=== PATIENT | female | born 1995 | race Caucasian/White ===

== ENCOUNTER 2024-03-14 18:17 | Outpatient (CLI) | payer BC, SELFPAY ==
[2024-03-14] VITALS (23 sets, daily range): BP systolic 118–121; BP diastolic 71–77; PULSE 62–79; O2SAT 98–100; BMI 29.9
--- NOTE | 2024-03-14 18:17 | PC.NURSE ---
Pt arrives to unit from the office with elevated blood pressures.
[2024-03-14 19:08] LABS: Basophils Percent Auto 0.2 % (0.2-1.2); Eosinophils Absolute Auto 0.1 K/mm3 (0-0.3); Eosinophils Percent Auto 1.3 % (0-4.4); Hematocrit 34.2 % (37.0-47.0); Hemoglobin 11.8 g/dL (12.0-15.0); Immature Granulocyte Absolute 0.03 K/mm3 (0.00-0.031); Immature Granulocyte Percent A 0.3 % (0-0.5); Lymphocytes Absolute Auto 2.03 K/mm3 (0.9-3.2); Lymphocytes Percent Auto 20.2 % (18.3-44.2); Mean Corpuscular HGB Conc 34.5 g/dl (32-36); Mean Corpuscular Hemoglobin 30.6 pg (26-34); Mean Corpuscular Volume 88.8 fl (80-100); Monocytes Absolute Auto 0.9 K/mm3 (0.1-0.6); Monocytes Percent Auto 8.6 % (2.6-8.5); Neutrophils Percent Auto 69.4 % (45.5-73.1); Platelet Count Result 291 k/mm3 (150-375); Red Blood Count 3.85 M/mm3 (4.2-5.4); Red Cell Distribution Width 13.3 % (11.5-14.5); White Blood Count 10.1 K/mm3 (4.5-10.0)
[2024-03-14 19:17] LABS: Appearance Urine Cloudy (Clear); Bacteria Urine 3+ /hpf; Bilirubin Urine Negative (Negative); Blood Urine 2+ (Negative); Color Urine Yellow (Yellow); Glucose Urine UA Negative (Negative); Ketones Urine Negative (Negative); Leukocyte Esterase Ur 3+ LEU/UL (Negative); Nitrate Urine Negative (Negative); Non Pathogenic Casts 0-2; Protein Urine Negative (Negative); RBC Urine 0-2 /hpf (0-2); Specific Grav Ur 1.012 (1.001-1.035); Squamous Epithelial Cell Urine Moderate /hpf (Few); Urobilinogen Urine 0.2 mg/dL (<2.0); WBC Urine 51-100 /hpf (0-3); pH Urine 6.5 (5.0-9.0)
[2024-03-14 19:18] LABS: Alanine Aminotransferase 18 U/L (6-35); Albumin Level 3.5 g/dL (3.5-5.1); Alkaline Phosphatase 148 U/L (38-126); Anion Gap 11 mmol/L (4-12); Aspartate Amino Transferase 25 U/L (14-36); Bilirubin,Total 0.2 mg/dL (0.2-1.3); Blood Urea Nitrogen 7 mg/dL (7-17); Calcium 8.7 mg/dL (8.4-10.2); Carbon Dioxide 19 mmol/L (22-30); Chloride 105 mmol/L (98-107); Estimated Glomerular Filt Rate > 60; Glucose 91 mg/dL (65-110); Potassium 3.8 mmol/L (3.4-5.0); Sodium 135 mmol/L (137-145); Uric Acid 5.5 mg/dL (2.5-7.5)
[2024-03-14 19:19] LABS: Add Urine Microscopic? YES
[2024-03-14 19:37] LABS: Creatinine Urine 67.1 mg/dL; Total Protein Urine Random 7 mg/dL
--- NOTE | 2024-03-14 20:10 | PC.NURSE ---
Called Dr. Newman, update on pt, labs, tracing, contractions, and blood pressure. Orders received to discharge pt with hypertension in precautions, instructions to keep next scheduled appointment, and when to return to the unit.
--- NOTE | 2024-03-14 20:29 | PC.NURSE ---
Pt discharged with hypertension in precautions, Dr. Newman' office will call tomorrow to schedule version, instructions to keep next scheduled appointment, and when to return to the unit.
== END 2024-03-14 20:29 | disposition home or self-care (01) ==
LOC: ANHOBOP 18:21 → ANHOBPP 18:21
PROVIDERS: Student in an Organized Health Care Education/Training Program; Visit Provider Obstetrics & Gynecology
DX: O13.9 Gestational [pregnancy-induced] hypertension without significant proteinuria, unspecified trimester (principal); Z3A.00 Weeks of gestation of pregnancy not specified
CPT/HCPCS: 36415; 59025; 80053; 81001; 82570; 84156; 84550; 85025; 87086; 99199

== ENCOUNTER 2024-03-19 13:19 | Outpatient (CLI) | payer BC, SELFPAY ==
[2024-03-19] VITALS (12 sets, daily range): BP systolic 118–133; BP diastolic 65–85; PULSE 71–90; O2SAT 99–100
[2024-03-19] MEDS: TERBUTALINE SULFATE 1 MG/ML VIAL 0.25 MG SUB-Q (14:20)
--- NOTE | 2024-03-19 14:41 | PM.OBTRLD ---
OB - Triage/Final Diagnosis Visit Information Comments/Additional reasons for admission: I have assessed the risk for this patient, Kelly Holloway, and determined that she would benefit from observation care. Evaluation Vital signs: Vital Signs - 24 hr 03/19/24 14:00 03/19/24 14:15 03/19/24 14:32 Pulse Rate 77 71 Blood Pressure 126/85 118/69 Pulse Oximetry 100 03/19/24 14:37 Pulse Rate Blood Pressure Pulse Oximetry 99 Final Diagnosis (1) Breech malpresentation successfully converted to cephalic presentation: Qualifiers: Fetus number: single or unspecified fetus Qualified Code(s): O32.1XX0 - Maternal care for breech presentation, not applicable or unspecified Code(s): O32.1XX0 - Maternal care for breech presentation, not applicable or unspecified Status: Acute Plan: - successful ECV; baby now cephalic - will monitor FHT's for minimum of 30 minutes; if category 1, will discharge home with precautions - pt does not desire IOL unless 41wks - will see pt in office on 03/21/24
--- NOTE | 2024-03-19 15:15 | PC.NURSE ---
NST complete. Labor precautions given to the pt. Pt to see Dr. Newman in the office on tue. No further questions per family and spouse.
== END 2024-03-19 15:18 | disposition home or self-care (01) ==
LOC: ANHOBOP 13:24 → ANHOBPP 13:28
PROVIDERS: Visit Provider Obstetrics & Gynecology
DX: O32.1XX0 Maternal care for breech presentation, not applicable or unspecified (principal); Z3A.00 Weeks of gestation of pregnancy not specified
CPT/HCPCS: 59412; 99199; J3105

== ENCOUNTER 2024-03-28 18:46 | Inpatient (IN) | payer BC, SELFPAY ==
[2024-03-28] VITALS (15 sets, daily range): BP systolic 118–137; BP diastolic 72–96; PULSE 47–68; TEMP 36.6–36.8
--- NOTE | 2024-03-28 19:23 | LDADM ---
This patient, Kelly Holloway, was admitted to Labor/Delivery/Recovery 104 on 03/28/24 at 18:46. Plans for labor, pain management and were discussed with patient. Patient/family oriented to hospital policies and general routines including ID bracelet, bed and alarms, visiting hours, pain management, procedures, bathroom and other care routines, personal items, smoking policy, room service/diet and guest tray routines, security routines, and visiting hours. Patient/Family are encouraged to report perceived risks to care and to ask questions if they do not understand what they are told or what they should do. See OBIX for further documentation.
--- NOTE | 2024-03-28 19:34 | PM.IMHP ---
H&P: HPI History of Present Illness Date/Time: 03/28/24 19:34 Chief Complaint: newly diagnosed gestational hypertension Narrative: Kelly is a 28yo @ 40.0wks who presents to L&D for IOL due to newly diagnosed GHTN. She had PIH w/u 2 wks ago when her first mild range BP was noted; P/C was negative. She once again had elevated BPs in office today and is 40wks. She has a favorable cervix and was scheduled for IOL this weekend. She reports good movement. Irregular contractions. No VB or LOF. She denies CERVANTES, vision changes, CP, SOB. Her is complicated by: - Newly diagnosed GHTN; repeat PIH labs pending - Breech; converted to cephalic @ 38.5wks--- still cephalic - Cmv/parvo non-immune - h/o headaches Review of Systems Constitutional: Constitutional: Denies chills, Denies fever(s) and Denies headache(s) Eyes: Eyes: Denies change in vision ENT: Denies headache(s) Cardiovascular: Cardiovascular: Denies chest pain and Denies dyspnea Respiratory: Respiratory: Denies dyspnea Genitourinary: Genitourinary: Denies abnormal vaginal bleeding and Denies vaginal discharge Neurologic: Denies headache(s) Psychiatric: Psychiatric: Denies anxiety and Denies depression [facility] Surgical History Surgical History H/O knee surgery left History of appendectomy Family History Family History Grandparent Diabetes mellitus Other Lung cancer Social History Social History Smoking status: Never smoker Alcohol intake: never Substance use: never Do You Feel Safe in your Home?: Yes Lack of Transportation: No Lack of Food: Never True Current Housing: I Have Housing Concerned About Future Housing: No Difficulty Paying Gas/Electric Bills: No Difficulty Paying for Meds: No Currently Unemployed: No Education: Bachelor's Degree Difficulty w/ Childcare or Family Care: No Living arrangements: with family Additional living arrangements comments: Occupation/Education: occupation Gender identity (if verbalized by the patient): Female Sexual Orientation (if Verbalized by the Patient): Straight or Heterosexual Spiritual care concerns: No Meds Home Medications and Allergies Home Medications Medication Instructions Recorded Confirmed Type riboflavin (vitamin B2) 400 mg 400 mg PO DAILY #90 tabs 08/18/23 03/28/24 Rx tablet vits no.126-ferrous fum 1 tablet PO DAILY 10/26/23 03/28/24 History 28 mg iron-folic acid 800 mcg tablet (Classic ) valacyclovir 1 gram tablet 2,000 mg PO BID 1 day #4 tabs 10/28/23 03/28/24 Rx (Valtrex) magnesium oxide 400 mg PO DAILY #90 caps 12/22/23 03/28/24 Rx Allergies Allergy/AdvReac Type Severity Reaction Status Date / Time No Known Allergies Allergy Verified 03/28/24 15:22 Exam Const: General: cooperative, healthy appearing, comfortable and no acute distress Nutritional Appearance: obese Orientation/consciousness: patient oriented x3 Resp: Effort & Inspection: normal respiratory effort Cardio: Rate: regular rate GI: GI Palp: No abdominal tenderness : Other: FHT's: 130's/ mod fidel/ + accels/ no decels - cat 1 TOCO: irregular ctxs Cervix: 4.5/50/-3 Membranes: intact Presentation: cephalic Skin: General skin exam: normal color Neuro: General: patient oriented x3 Extrem: General: normal to inspection Psych: Appearance: grossly normal Affect: normal affect Attitude: cooperative Assessment and Plan Assessment and plan (1) Gestational hypertension affecting first : Code(s): O13.9 - Gestational [-induced] hypertension without significant proteinuria, unspecified trimester Status: Acute Plan - newly diagnosed GHTN @ 40wks; PIH w/u pending - favorable cervix on exam - Will start low dose pitocin
[2024-03-28 19:55] LABS: Basophils Percent Auto 0.2 % (0.2-1.2); Eosinophils Absolute Auto 0.1 K/mm3 (0-0.3); Eosinophils Percent Auto 1.2 % (0-4.4); Hematocrit 36.1 % (37.0-47.0); Hemoglobin 12.2 g/dL (12.0-15.0); Immature Granulocyte Absolute 0.03 K/mm3 (0.00-0.031); Immature Granulocyte Percent A 0.3 % (0-0.5); Lymphocytes Absolute Auto 2.21 K/mm3 (0.9-3.2); Lymphocytes Percent Auto 21.9 % (18.3-44.2); Mean Corpuscular HGB Conc 33.8 g/dl (32-36); Mean Corpuscular Hemoglobin 30.3 pg (26-34); Mean Corpuscular Volume 89.6 fl (80-100); Mean Platelet Volume 11.7 fl (7.4-10.4); Monocytes Absolute Auto 0.8 K/mm3 (0.1-0.6); Monocytes Percent Auto 8.3 % (2.6-8.5); Neutrophils Absolute Auto 6.9 K/mm3 (1.3-6.7); Neutrophils Percent Auto 68.1 % (45.5-73.1); Platelet Count Result 299 k/mm3 (150-375); Red Blood Count 4.03 M/mm3 (4.2-5.4); Red Cell Distribution Width 13.2 % (11.5-14.5); White Blood Count 10.1 K/mm3 (4.5-10.0)
[2024-03-28 20:07] LABS: Alanine Aminotransferase 16 U/L (6-35); Albumin Level 3.8 g/dL (3.5-5.1); Alkaline Phosphatase 171 U/L (38-126); Anion Gap 10 mmol/L (4-12); Aspartate Amino Transferase 25 U/L (14-36); Bilirubin,Total 0.3 mg/dL (0.2-1.3); Blood Urea Nitrogen 9 mg/dL (7-17); Calcium 9.2 mg/dL (8.4-10.2); Carbon Dioxide 21 mmol/L (22-30); Chloride 104 mmol/L (98-107); Estimated Glomerular Filt Rate > 60; Glucose 77 mg/dL (65-110); Sodium 135 mmol/L (137-145)
[2024-03-28 20:08] LABS: Rapid Plasma Reagin Non-Reactive (NonReactive)
[2024-03-28 20:09] LABS: Uric Acid 6.4 mg/dL (2.5-7.5)
[2024-03-28 20:47] LABS: HIV 1/2 Ab P24 Ag Result Negative (Negative)
[2024-03-28 21:03] LABS: Creatinine Urine 22.8 mg/dL; Total Protein Urine Random 12 mg/dL; Ur Ttl Prot Creatinine Ratio 0.53 mg/mg (0-0.20)
[2024-03-28] MEDS: LACTATED RINGERS 1,000 ML 125 ML IV CONT (21:17)
[2024-03-28] MEDS: OXYTOCIN 30 UNITS/NS 500 ML 30 UNITS/500 ML BAG IV CONT (22:19)
[2024-03-29] VITALS (75 sets, daily range): BP systolic 78–140; BP diastolic 48–108; PULSE 44–132; RESP 16–18; TEMP 36.6–37.1; O2SAT 76–100; BMI 30.7
[2024-03-29] MEDS: LACTATED RINGERS 1,000 ML 125 ML IV CONT ×2 (02:40→07:49)
--- NOTE | 2024-03-29 07:17 | PM.OBPNLAB ---
Pain Control Date/time seen: 03/29/24 07:17 Pain control: tolerating well Comments: would like epidural soon though Pelvic Exam Dilation (cm): 6 Effacement (%): 80 station: -2 Amniotic membrane status: Ruptured (AROM, clear 0715) Contractions Monitor mode: External Contraction frequency: 2 Contraction pattern: Regular Status status: Category l Assessment and Plan Pitocin rate (mU/min): 18 Assessment: active labor Plan: continuous present management Comments: anesthesia for epidural
[2024-03-29] MEDS: fentaNYL CITRATE INJ (*CRX) 100 MCG/2 ML VIAL 50 MCG IV PUSH (07:51)
--- NOTE | 2024-03-29 08:25 | WPDANESEPPF ---
Anes - Initial Pre Proc Eval Procedure: labor epidural Date/Time: 03/29/24 08:25 Surgeon: Cat Newman MD Pre Op Diagnosis: labor pain Pre Op Diagnosis: IOL Patient Data Age: 28 Gender: F Height: Weight: Last Vital Signs Temp 36.6 C 03/29/24 06:16 Pulse 58 L 03/29/24 08:25 Resp 16 03/29/24 06:16 BP 127/72 03/29/24 08:25 Pulse Ox 100 03/29/24 08:21 Allergies Allergy/AdvReac Type Severity Reaction Status Date / Time No Known Allergies Allergy Verified 03/28/24 15:22 Home Medications Medication Instructions Recorded Confirmed Type riboflavin (vitamin B2) 400 mg 400 mg PO DAILY #90 tabs 08/18/23 03/28/24 Rx tablet vits no.126-ferrous fum 1 tablet PO DAILY 10/26/23 03/28/24 History 28 mg iron-folic acid 800 mcg tablet (Classic ) valacyclovir 1 gram tablet 2,000 mg PO BID 1 day #4 tabs 10/28/23 03/28/24 Rx (Valtrex) magnesium oxide 400 mg PO DAILY #90 caps 12/22/23 03/28/24 Rx Laboratory Tests 03/28/24 03/28/24 19:09 20:14 WBC 10.1 H K/mm3 (4.5-10.0) RBC 4.03 L M/mm3 (4.2-5.4) Hgb 12.2 g/dL (12.0-15.0) Hct 36.1 L % (37.0-47.0) MCV 89.6 fl (80-100) MCH 30.3 pg (26-34) MCHC 33.8 g/dl (32-36) RDW 13.2 % (11.5-14.5) Plt Count 299 k/mm3 (150-375) MPV 11.7 H fl (7.4-10.4) Immature Gran % (Auto) 0.3 % (0-0.5) Neut % (Auto) 68.1 % (45.5-73.1) Lymph % (Auto) 21.9 % (18.3-44.2) Young % (Auto) 8.3 % (2.6-8.5) Eos % (Auto) 1.2 % (0-4.4) Baso % (Auto) 0.2 % (0.2-1.2) Lymph # (Auto) 2.21 K/mm3 (0.9-3.2) Young # (Auto) 0.8 H K/mm3 (0.1-0.6) Eos # (Auto) 0.1 K/mm3 (0-0.3) Baso # (Auto) 0.0 K/mm3 (0.0-0.1) Abs Immat Gran (auto) 0.03 K/mm3 (0.00-0.031) Absolute Neuts (auto) 6.9 H K/mm3 (1.3-6.7) Absolute Nucleated RBC 0.000 K/mm3 (0.0-0.012) Nucleated RBC % 0.0 % (0.0-0.2) Sodium 135 L mmol/L (137-145) Potassium 4.0 mmol/L (3.4-5.0) Chloride 104 mmol/L (98-107) Carbon Dioxide 21 L mmol/L (22-30) Anion Gap 10 mmol/L (4-12) BUN 9 mg/dL (7-17) Creatinine 0.60 L mg/dL (0.7-1.0) Estim Creat Clear Calc Not Reportable Estimated GFR > 60 (59 - ) Glucose 77 mg/dL (65-110) Uric Acid 6.4 mg/dL (2.5-7.5) Calcium 9.2 mg/dL (8.4-10.2) Total Bilirubin 0.3 mg/dL (0.2-1.3) AST 25 U/L (14-36) ALT 16 U/L (6-35) Alkaline Phosphatase 171 H U/L (38-126) Total Protein 7.0 g/dL (6.3-8.2) Albumin 3.8 g/dL (3.5-5.1) U Random Total Protein 12 mg/dL Urine Creatinine 22.8 mg/dL Protein/Creat Ratio 2 0.53 H mg/mg (0-0.20) RPR Non-reactive (NonReactive) HIV 1&2 Ab/P24 Ag 4thGn Negative (Negative) Blood Type A Positive Antibody Screen Negative Patient hx anesthesia problems: none Family hx anesthesia problems: none Results Review: All pre-operative results and documents have been reviewed as part of the pre-operative evaluation. [facility] Surgical History Surgical History H/O knee surgery left History of appendectomy Family History Family History Grandparent Diabetes mellitus Other Lung cancer Social History Social History Smoking status: Never smoker Alcohol intake: never Substance use: never Do You Feel Safe in your Home?: Yes Lack of Transportation: No Lack of Food: Never True Current Housing: I Have Housing Concerned About Future Housing: No Difficulty Paying Gas/Electric Bills: No Difficulty Paying for Meds: No Currently Unemployed: No Education:
--- NOTE | 2024-03-29 09:58 | P.PCNOB_ITS ---
OB - Vaginal Delivery Note Procedure Delivery date: 03/29/24 Events: Preeclampsia w/o severe features and Other (Successful ECV; converted breech to cephalic) Induction method: Per Pitocin Protocol Delivery augmentation: Rupture of Membranes Delivery monitor: External FHT and External Uterine Route of delivery: Episiotomy description: None Laceration Description: Perineal - 1st Degree Delivery repair: vicryl Specimen: Yes Quantitative Blood Loss (ml): 300 Anesthesia type: Epidural Disposition: Floor Complications: No immediate complications [place] Baby Date of : 03/29/24 Time of : 09:25 Gestational Age by Date: 40 (.1) gender: Female presentation: vertex Placenta delivery description: Expressed Cord Vessel Description: 3 Vessels, Nuchal Cord (x2), Loose, Reduced and D elayed Cord Clamping score one minute: 8 score five minutes: 9 Narrative: Kelly progressed to complete dilation with strong desire to push. She pushed for approximately 25 minutes with good maternal effort. She delivered the head over intact perineum. Nuchal cord x2 was noted and easily reduced. She easily delivered the 's shoulders and body without complication. The infant was immediately placed skin to skin and she had spontaneous cry. Delayed cord clamping was performed. The umbilical cord was then doubly clamped and cut. A segment of the cord was collected for cord gases. The remaining cord blood was collected for typing. With Pitocin running and gentle downward traction on the cord, the placenta delivered without complication. Bimanual massage was performed and good uterine tone with minimal bleeding was noted. She was examined and a small first-degree perineal laceration was identified. The laceration was repaired in the normal fashion using 2-0 Vicryl and was found to be hemostatic. Bimanual massage was once again performed and good uterine tone with minimal bleeding. A straight catheterization was performed to drain her bladder as the Barnard was not able to be placed before delivery, and approximately 300 cc of urine was removed from her bladder. Sponge, lap, instrument, and needle counts were correct at the end of the procedure. Mom and baby were left bonding in the birthing suite in stable condition.
[2024-03-29] MEDS: OXYTOCIN 30 UNITS/NS 500 ML 30 UNITS/500 ML BAG 125 UNITS IV CONT (10:01)
[2024-03-29] MEDS: ACETAMINOPHEN 325 MG TABLET 650 MG PO (18:50)
[2024-03-30 04:40] VITALS: BP 110/60; PULSE 67
[2024-03-30 05:02] LABS: Hematocrit 35.1 % (37.0-47.0); Hemoglobin 11.5 g/dL (12.0-15.0); Mean Corpuscular HGB Conc 32.8 g/dl (32-36); Mean Corpuscular Volume 91.6 fl (80-100); Mean Platelet Volume 11.6 fl (7.4-10.4); Platelet Count Result 233 k/mm3 (150-375); Red Blood Count 3.83 M/mm3 (4.2-5.4); Red Cell Distribution Width 13.4 % (11.5-14.5)
[2024-03-30 05:17] LABS: Alanine Aminotransferase 15 U/L (6-35); Albumin Level 3.1 g/dL (3.5-5.1); Alkaline Phosphatase 142 U/L (38-126); Anion Gap 9 mmol/L (4-12); Aspartate Amino Transferase 27 U/L (14-36); Bilirubin,Total 0.2 mg/dL (0.2-1.3); Blood Urea Nitrogen 8 mg/dL (7-17); Calcium 8.6 mg/dL (8.4-10.2); Carbon Dioxide 22 mmol/L (22-30); Chloride 105 mmol/L (98-107); Estimated CRCL calculation 157 ml/min; Estimated Glomerular Filt Rate > 60; Glucose 87 mg/dL (65-110); Potassium 3.7 mmol/L (3.4-5.0); Sodium 136 mmol/L (137-145)
[2024-03-30 07:45] VITALS: BP 113/79; PULSE 59; RESP 16; TEMP 37.1; O2SAT 100
--- NOTE | 2024-03-30 08:16 | PM.OBPNVD ---
OB - PN: Subj Subjective Date/time seen: 03/30/24 08:16 S: Doing well, breast-feeding without issue. No significant swelling bleeding or pain O: Blood pressure stable /normal tensive Abdomen positive bowel sounds soft uterus nontender Labs: Reviewed A: day 1 status post vaginal delivery, induction due to elevated blood pressures P: Continue to monitor today, discharge home tomorrow if no issues with routine follow-up OB - PN: Obj Data Labs 03/30/24 04:48 03/30/24 04:48 Labs: Laboratory Results - last 24 hr 03/30/24 04:48 WBC 12.0 H RBC 3.83 L Hgb 11.5 L Hct 35.1 L MCV 91.6 MCH 30.0 MCHC 32.8 RDW 13.4 Plt Count 233 MPV 11.6 H Sodium 136 L Potassium 3.7 Chloride 105 Carbon Dioxide 22 Anion Gap 9 BUN 8 Creatinine 0.60 L Estim Creat Clear Calc 157 Estimated GFR > 60 Glucose 87 Calcium 8.6 Total Bilirubin 0.2 AST 27 ALT 15 Alkaline Phosphatase 142 H Total Protein 6.0 L Albumin 3.1 L OB - PN A/P Time Spent With Patient Time: Total time spent is greater than 50% in coordination of care (as documented) at patient's floor/unit and/or counseling patient:
[2024-03-30] MEDS: MULTIVIT/MIN/PREN/FOL AC/IRON TABLET 1 TAB PO (08:24)
[2024-03-30] MEDS: DOCUSATE SODIUM 100 MG CAPSULE PO ×2 (08:24→16:04)
--- NOTE | 2024-03-30 09:54 | PC.NURSE ---
Consulted with patient to assess needs related to . Discussed with mother her successes, concerns and any questions she has. We reviewed working with the , supporting breast, protecting her nipples with an optimal deep latch, good positioning, and good hand washing. Encouraged understanding the benefits of skin to skin, duration of feedings, and infant swallowing at the breast. Reviewed positioning and alignment, supporting breast,and leading with the chin with big, open, wide gape. latched optimally to the right breast in football position with breast shield in place. Education given to the mother of how to visualize the suckling (with good rocking jaw motion) swallows (dropping of the lower jaw) and how to listen for drinking at the breast (the ka sound). The infant was able to maintain latch without discomfort to mother while using nipple shield. Mother voiced understanding of the education shared, to call for assistance if the does not latch or if there is discomfort with . Reported to the Primary RN.
--- NOTE | 2024-03-30 11:22 | WPDANLDPN2 ---
Anes-Prog Note L&D Date/Time: 03/30/24 11:22 Neuro status: Neuro function grossly intact. Cardiovascular status: normal Respiratory status: normal Airway patency: baseline Mental status: baseline Post-Op hydration status: normal Vital Signs: Last Vital Signs Temp 37.1 C 03/30/24 07:45 Pulse 59 L 03/30/24 07:45 Resp 16 03/30/24 07:45 BP 113/79 03/30/24 07:45 Pulse Ox 100 03/30/24 07:45 O2 Del Method Room Air 03/29/24 19:00 Pain score (VAS): 0 I/O: Intake & Output 03/29/24 03/30/24 03/30/24 23:59 07:59 15:59 Intake Total 500 1500 Output Total 2850 1900 Balance -2350 -400 Post-procedural complaints: none Patient feedback: Patient satisfied with anesthetic care.
[2024-03-30 13:11] VITALS: BP 123/77; PULSE 59; RESP 16; TEMP 36.3; O2SAT 100
[2024-03-30 16:10] VITALS: BP 131/69
[2024-03-30 20:00] VITALS: BP 99/55; PULSE 66; RESP 18; TEMP 36.7; O2SAT 100
[2024-03-31] VITALS: BP 117/66
[2024-03-31 04:00] VITALS: BP 121/84
--- NOTE | 2024-03-31 08:21 | P.DS_ITS ---
DS: Admitting Diagnosis Discharge Date 01/30/2024 Admitting Diagnosis DS: Discharge Diagnosis Discharge Diagnosis (1) , delivered: Code(s): O80 - Encounter for full-term uncomplicated delivery Status: Acute OB - DS: Summary OB Procedures : None OB Procedures Intrapartum: Spontaneous Vag Delivery OB Procedures: : None Peripartum Data Laceration Description: Perineal - 1st Degree Episiotomy description: None Time Spent with Patient Time attestation: Total time spent providing and/or coordinating discharge services: DS: Data Data Completed and Pending Pending studies at discharge: Pending at discharge 03/29/24 09:48 Surgical [PTH] Routine Discharge Plan Discharge Discharging Clinician: Aleksandr Johnson Patient Disposition: Home, Self-Care Activity: may shower and pelvic rest Diet: regular Patient Instructions: Vaginal Delivery (DC) Stand Alone Forms: General Discharge Information Follow-up/Referrals: Cat Newman MD [Physician] - 4 Weeks Discharge Medications: New acetaminophen 325 mg Tablet 650 mg PO Q6H PRN (Reason: Mild Pain (1-3) Or Headache) Qty: 60 0RF docusate sodium 100 mg Capsule 100 mg PO BID PRN (Reason: Constipation) Qty: 60 0RF ibuprofen 600 mg Tablet 600 mg PO Q6H PRN (Reason: Cramping) Qty: 40 0RF Continued Classic 28 mg iron- 800 mcg tablet 1 tablet PO DAILY valacyclovir [Valtrex] 1 gram tablet 2,000 mg PO BID 1 Days Qty: 4 2RF Rx Instructions: for fever blisters riboflavin (vitamin B2) 400 mg tablet 400 mg PO DAILY Qty: 90 2RF magnesium oxide 400 mg magnesium capsule 400 mg PO DAILY Qty: 90 2RF Date of admission: 03/28/24 18:46 Primary Care Provider: PHYSICIAN,EMPLOYMENT SERVICES DIRECTOR Admitting Provider: Cat Newman Attending physician on admission: Cat Newman Condition: Stable
[2024-03-31 08:50] VITALS: BP 121/80; PULSE 57; RESP 20; TEMP 36.9
[2024-03-31] MEDS: MULTIVIT/MIN/PREN/FOL AC/IRON TABLET 1 TAB PO (09:04)
--- NOTE | 2024-04-01 20:24 | PM.OBDSVD ---
DS: Admitting Diagnosis Discharge Date 03/31/24 Admitting Diagnosis Pre-eclampsia w/o severe features Breech malpresentation converted to cephalic DS: Discharge Diagnosis Discharge Diagnosis (1) Pre-eclampsia: Qualifiers: Trimester: third trimester Qualified Code(s): O14.93 - Unspecified pre-eclampsia, third trimester Code(s): O14.90 - Unspecified pre-eclampsia, unspecified trimester Status: Acute (2) Normal vaginal delivery of first : Code(s): O80 - Encounter for full-term uncomplicated delivery Status: Acute OB - DS: Summary OB Procedures : NST, PIH Mgmt, Ultrasound and External version OB Procedures Intrapartum: Spontaneous Vag Delivery OB Procedures: : None Peripartum Data Infant Delivery Method: Natural Vaginal Laceration Description: Perineal - 1st Degree Episiotomy description: None complications: none 1: Gender: Female Disposition of : home Status at Discharge Functional status at discharge: independent ambulation Overall status at discharge: patient is back to baseline Time Spent with Patient Time attestation: Total time spent providing and/or coordinating discharge services: Exam Const: General: cooperative, healthy appearing, comfortable and no acute distress Orientation/consciousness: patient oriented x3 Resp: Effort & Inspection: normal respiratory effort Auscultation: clear to auscultation bilaterally Cardio: Rate: regular rate GI: Inspection: non-distended GI Palp: No abdominal tenderness and Yes Soft to palpation Auscultation: normal bowel sounds : Other: fundus firm Skin: General skin exam: normal color Neuro: General: patient oriented x3 Extrem: General: normal to inspection Psych: Appearance: grossly normal Affect: normal affect Attitude: cooperative DS: Data Data Completed and Pending Pending studies at discharge: Pending at discharge 03/29/24 09:48 Surgical [PTH] Routine Labs on day of discharge: Labs from last 24 hours 03/28/24 03/28/24 20:14 19:09 WBC 10.1 H RBC 4.03 L Hgb 12.2 Hct 36.1 L MCV 89.6 MCH 30.3 MCHC 33.8 RDW 13.2 Plt Count 299 MPV 11.7 H Immature Gran % (Auto) 0.3 Neut % (Auto) 68.1 Lymph % (Auto) 21.9 Tillman % (Auto) 8.3 Eos % (Auto) 1.2 Baso % (Auto) 0.2 Lymph # (Auto) 2.21 Tillman # (Auto) 0.8 H Eos # (Auto) 0.1 Baso # (Auto) 0.0 Abs Immat Gran (auto) 0.03 Absolute Neuts (auto) 6.9 H Absolute Nucleated RBC 0.000 Nucleated RBC % 0.0 Sodium 135 L Potassium 4.0 Chloride 104 Carbon Dioxide 21 L Anion Gap 10 BUN 9 Creatinine 0.60 L Estim Creat Clear Calc Not Reportable Estimated GFR > 60 Glucose 77 Uric Acid 6.4 Calcium 9.2 Total Bilirubin 0.3 AST 25 ALT 16 Alkaline Phosphatase 171 H Total Protein 7.0 Albumin 3.8 U Random Total Protein 12 Urine Creatinine 22.8 Protein/Creat Ratio 2 0.53 H RPR Non-reactive HIV 1&2 Ab/P24 Ag 4thGn Negative Blood Type A Positive Antibody Screen Negative Discharge Plan Discharge Discharging Clinician: Aleksandr Johnson Patient Disposition: Home, Self-Care Activity: may shower and pelvic rest Diet: regular Discharge Instructions: Education: Mom and Baby Guide Given to: Mother Follow-Up: Call your delivering provider's office for an appointment to be seen in: 4 Weeks Mom and baby should come to the [facility] for the follow-up appointment. Appointment Date/Time: April 02, 2024 at 8:00 am What to expect at your follow-up visit: Physical Assessment Call [phone] if you are unable to keep your appointment time. BREAST CARE: * Wear a snug supportive bra. * For engorgement discomfort: Breast Feeding: * Apply warm moist washcloths * Express milk as needed to relieve engorgement * Wear loose clothing * For sore n
[2024-04-02 08:31] VITALS: BP 141/81; PULSE 88; RESP 18; TEMP 36.9; O2SAT 100
== END 2024-03-31 11:20 | disposition home or self-care (01) | DRG 807 ==
LOC: ANHLDR 03-29 01:22 → ANHOB2 03-29 16:55 → ANHLDR 04-02 13:36 → ANHOB2 04-02 13:36
PROVIDERS: Admitting Provider Obstetrics & Gynecology; Visit Provider Obstetrics & Gynecology
DX: O13.4 Gestational [pregnancy-induced] hypertension without significant proteinuria, complicating childbirth (principal); Z37.0 Single live birth; O14.04 Mild to moderate pre-eclampsia, complicating childbirth; O70.0 First degree perineal laceration during delivery; O69.81X0 Labor and delivery complicated by cord around neck, without compression, not applicable or unspecified; Z3A.40 40 weeks gestation of pregnancy
CPT/HCPCS: 36415; 80053; 82570; 84156; 84550; 85025; 85027; 86592; 86703; 86850; 86900; 86901; 88307; A9270; G0432; J2590; J2795; J3010; J7120